=== PATIENT | female | born 1985 | race Caucasian/White ===

== ENCOUNTER 2017-09-20 04:08 | Emergency (ER) | payer BC ==
--- NOTE | 2017-09-20 04:34 | EDM.PDOC ---
ED HPI GENERAL MEDICAL PROBLEM - General Chief Complaint: Upper Extremity Injury/Pain Stated Complaint: POSS HAND INJURY Time Seen by Provider: 09/20/17 04:22 Source of Information: Reports: Patient History Limitations: Reports: No Limitations - History of Present Illness INITIAL COMMENTS - FREE TEXT/NARRATIVE: This is a 32-year-old female. She comes to the ER because she has trauma to her right hand. She initially told the nurse that she fell down some steps and hurt her right hand but now she tells me she hit a wall with her right hand. She has obvious bruising over the fourth and fifth MP joints and the fifth MP joint appears to be sunken and there is a bulge in the fifth metacarpal area. The patient is able to make a fist with the right hand to compare it to the left hand. She denies any other acute symptoms. Right Hand Pain Score (Numeric/FACES): 2 - Related Data Allergies Allergy/AdvReac Type Severity Reaction Status Date / Time No Known Allergies Allergy Verified 09/20/17 04:17 Home Meds: Home Meds Ibuprofen [Advil] 400 mg PO ASDIRECTED PRN 09/20/17 [History] Past Medical History - Past Health History Medical/Surgical History: Denies Medical/Surgical History Social & Family History - Tobacco Use Smoking Status *Q: Current Every Day Smoker Years of Tobacco use: 5 Packs/Tins Daily: 0.1 - Recreational Drug Use Recreational Drug Use: No Review of Systems - Review of Systems Review Of Systems: See Below Constitutional: Denies: Chills, Fever Eyes: Reports: No Symptoms Ears: Reports: No Symptoms Nose: Reports: No Symptoms Mouth/Throat: Reports: No Symptoms Respiratory: Reports: No Symptoms Cardiovascular: Reports: No Symptoms GI/Abdominal: Reports: No Symptoms Genitourinary: Reports: No Symptoms Musculoskeletal: Reports: Other (As per history of present illness) Skin: Reports: Bruising Neurological: Reports: No Symptoms Psychiatric: Reports: No Symptoms ED EXAM, GENERAL - Physical Exam Exam: See Below Exam Limited By: No Limitations General Appearance: Alert, WD/WN, No Apparent Distress Eye Exam: Bilateral Eye: Normal Inspection Ears: Normal External Exam Nose: Normal Inspection Throat/Mouth: Normal Inspection, Normal Lips, Normal Voice, No Airway Compromise Head: Normocephalic Neck: Supple Respiratory/Chest: No Respiratory Distress Back Exam: Full Range of Motion Extremities: Other (Right hand shows bruising over the fourth and fifth MP joints, the fifth metacarpal is somewhat sunken and there is a bulge over the dorsal portion of the fifth metacarpal, she still has good range of motion of those MP joints, when you compare the right hand fist to the left hand fist the fifth MP joint is shortened. Neurovascular is intact in all 5 digits of the right hand.) Neurological: Alert, Oriented Psychiatric: Normal Affect, Normal Mood Skin Exam: Warm, Dry ED TRAUMA EXTREMITY PROCEDURES - Splinting Right Upper Extremity Splint Site: Right hand Pre-Procedure NV Status: Normal Post-Procedure NV Status: Normal Splint Material: Other (Ortho-Glass) Splint Design: Boxer Splint, Gutter Applied & Form Fitted By: Provider, Nurse Provider Post-Splint Application NV Check: NV Status Normal, Good Position Complications: No Progress/Comments: Patient tolerated the procedure well. Course - Vital Signs Last Recorded V/S: Last Vital Signs Temp 98.4 F 09/20/17 04:17 Pulse 100 09/20/17 04:17 Resp 18 09/20/17 04:17 BP 129/79 09/20/17 04:17 Pulse Ox 100 09/20/17 04:17 - Orders/Labs/Meds Orders: Active Orders 24 hr Category Date Time Status Hand Comp Min 3V Rt [CR] Stat Exams 09/20/17 04:26 Taken - Radiology Interpretation Free Text/Narrative:: X-ray shows a mid shaft fifth metacarpal fracture that angulated to about 45 - Re-Assessments/Exams Free Text/Narrative Re-Assessment/Exam: 09/20/17 05:00 I spoke to the patient regarding the sia's fracture and I showed her the x- rays. This will need to be manipulated to decrease the angle of the fracture so that she'll have a functional hand in the future. We did make a copy of the x- ray and sent with the patient said that when she gets home to [facility] she can follow-up with her family doctor and be referred to a hand specialist for the reduction of her fracture. The patient is aware of the need to have this done and is severe she gets home on Friday she will find a physician to do this. I stressed that she needed to do this if she wants to have a good functional right hand in the future. She understands. Departure - Departure Time of Disposition: 05:01 Disposition: Home, Self-Care 01 Condition: Fair Clinical Impression: Boxers fracture Qualifiers: Encounter type: initial encounter Fracture type: closed Qualified Code(s): S62.339A - Displaced fracture of neck of unspecified metacarpal bone, initial encounter for closed fracture Fracture of fifth metacarpal bone of right hand Qualifiers: Encounter type: initial encounter Fracture type: closed Metacarpal location: shaft Fracture alignment: nondisplaced Qualified Code(s): S62.356A - Nondisplaced fracture of shaft of fifth metacarpal bone, right hand, initial encounter for closed fracture - Discharge Information *PRESCRIPTION DRUG MONITORING PROGRAM REVIEWED*: Not Applicable *COPY OF PRESCRIPTION DRUG MONITORING REPORT IN PATIENT RAMON: Not Applicable Referrals: PCP,Not In Area [Primary Care Provider] - Forms: ED Department Discharge Additional Instructions: Get some ibuprofen and Aleve and start taking it faithfully for the pain, keep the hand in the gutter splint until you follow up with a physician that can fix your hand, ice down that part of the hand through the splint over the next 48 hours, as soon as you get home talk to your family physician to get referred to a hand specialist to reduce this fracture, this fracture must be reduced if you expect to have a good functioning right hand the rest of your life, be sure to take the disc with the x-rays on it to the doctor this going to fix your hand, return to the ER if needed - My Orders Last 24 Hours: My Active Orders 09/20/17 04:26 Hand Comp Min 3V Rt [CR] Stat - Assessment/Plan Last 24 Hours: My Active Orders 09/20/17 04:26 Hand Comp Min 3V Rt [CR] Stat
--- NOTE | 2017-09-21 11:43 | CR ---
Right hand: Four views of the right hand were obtained. Comparison: No prior hand exam. Angulated fracture identified within the distal shaft of the right fifth metacarpal. [place] is posterior. Soft tissue swelling is identified. No additional fracture or other bony abnormality is identified. Impression: 1. Angulated right fifth metacarpal shaft fracture with soft tissue swelling. Diagnostic code #3
== END 2017-09-20 05:12 | disposition home or self-care (01) ==
LOC: JD.ED 04:08
DX: S62.326A Displaced fracture of shaft of fifth metacarpal bone, right hand, initial encounter for closed fracture (principal); F17.210 Nicotine dependence, cigarettes, uncomplicated; W10.9XXA Fall (on) (from) unspecified stairs and steps, initial encounter
CPT/HCPCS: 29125; 73130-26-RT; 73130-RT; 99283; 99283-25